=== PATIENT | male | born 1995 | race American Indian/Alaskan Native ===

== ENCOUNTER 2019-07-18 13:33 | Outpatient (CLI) | payer MEDICARE ==
[2019-07-18 15:25] LABS: Blood Urea Nitrogen 14 mg/dL (9-20)
--- NOTE | 2019-07-18 17:02 | Cat Scan Report ---
CT HEAD WITHOUT AND WITH INTRAVENOUS CONTRAST INDICATION / CLINICAL INFORMATION: R41.82)Altered mental status, unspecified. TECHNIQUE: All CT scans at this location are performed using CT dose reduction for ALARA by means of automated e xposure control. COMPARISON: None available. FINDINGS: HEMORRHAGE: No evidence of intracranial hemorrhage or extra-axial fluid collection. EXTRA-AXIAL SPACES: Cortical sulci, sylvian fissures and basilar cisterns have an unremarkable appear ance. VENTRICULAR SYSTEM: The ventricular system is of normal size and configuration. CEREBRAL PARENCHYMA: No areas of abnormal brain parenchymal attenuation are identified. There is no i ndication of recent infarction. MIDLINE SHIFT OR HERNIATION: There is no mass effect. CEREBELLUM / BRAINSTEM: Brainstem and cerebellum have an unremarkable appearance. INTRACRANIAL VESSELS:No abnormalities are identified on this noncontrast head CT. ORBITS: visualized portions of the orbits have an unremarkable appearance. SOFT TISSUES of HEAD: No significant abnormality. CALVARIUM: Evaluation of bone windows reveals no abnormalities. PARANASAL SINUSES / MASTOID AIR CELLS: Paranasal sinuses are free from inflammatory mucosal disease. Mastoid air cells are normally pneumatized. CONTRAST ADMINISTRATION: Following administration of intravenous contrast material there is enhanceme nt of normal vascular structures. No areas of abnormal contrast enhancement are identified. Satisfact ory opacification of the dural venous sinuses is achieved. There is no indication of dural sinus thro mbosis. IMPRESSION: 1. No abnormalities are identified on head CT without and with intravenous contrast. Signer Name: Conrado Hunter MD Signed: 07/18/2019 4:57 PM Workstation Name: [id number]
== END 2019-07-18 13:34 | disposition home or self-care (01) ==
LOC: CT 13:33
PROVIDERS: ATTEND Psychiatry & Neurology Psychiatry
DX: R41.82 Altered mental status, unspecified (principal)
CPT/HCPCS: 36415; 70470; 82565; 84520; Q9967